=== PATIENT | female | born 1995 | race African-American/Black ===

== ENCOUNTER 2017-01-06 23:39 | Emergency (ER) | payer MEDICAID, OTHER ==
[~2017-01-06 23:39] MED LIST: MOBI15TA PO; TRAM50 PO
[2017-01-06 23:47] VITALS: BP 129/62; PULSE 84; RESP 16; TEMP 98.8; O2SAT 100
[2017-01-07 00:31] LABS: BLOOD, URINE NEG (NEG); GLUCOSE,URINE NEG (NEG); KETONE, URINE TRACE mg/dL (NEG); MUCUS URINE MANY /lpf (OCC); NITRITE,URINE NEG (NEG); RENAL EPITHELIAL CELLS <1 /hpf; SQUAMOUS EPITHELIAL CELL URINE 10 /hpf (0-5); URINE COLOR YELLOW (YELLW/STRAW)
[2017-01-07 00:32] LABS: COMMENT (UR) CULT NOT INDICATED; CULTURE IF INDICATED CULT NOT INDICATED
[2017-01-07] MEDS ORDERED: ONDANSETRON HCL 4 MG/2 ML VIAL IV ONE (01:30)
[2017-01-07] MEDS ORDERED: SODIUM CHLOR 0.9% 1000 ML INJ 1,000 ML IV ONE (01:30)
[2017-01-07 01:40] LABS: AUTOMATED NEUTROPHIL # 3.1 TH/MM3 (1.8-7.7); BASOPHIL # 0.1 TH/MM3 (0-0.2); BASOPHIL % 0.8 % (0.0-2.0); EOSINOPHIL # 0.1 TH/MM3 (0-0.4); EOSINOPHIL % 1.3 % (0.0-4.0); HEMATOCRIT 35.4 % (35.0-46.0); HEMO FLAGS DIFF FINAL; LYMPH % 38.3 % (9.0-44.0); LYMPHOCYTE # 2.4 TH/MM3 (1.0-4.8); MEAN CELL VOLUME 82.6 FL (80.0-100.0); MEAN CORPUSCULAR HEMOGLOBIN 27.5 PG (27.0-34.0); MEAN CORPUSCULAR HGB CONC 33.3 % (32.0-36.0); MONO % 10.8 % (0.0-8.0); NEUT % 48.8 % (16.0-70.0); PLATELET COUNT 396 TH/MM3 (150-450); RED BLOOD COUNT 4.28 MIL/MM3 (4.00-5.30); RED CELL DISTRIBUTION WIDTH 13.5 % (11.6-17.2); WHITE BLOOD COUNT 6.4 TH/MM3 (4.0-11.0)
[2017-01-07 01:58] LABS: ALT (GPT) 25 U/L (9-42); ANION GAP 9 MEQ/L (5-15); AST (GOT) 16 U/L (16-38); BICARBONATE 23.3 MEQ/L (21.0-32.0); BLOOD UREA NITROGEN 13 MG/DL (7-18); CHLORIDE 107 MEQ/L (98-107); GLOMERULAR FILTRATION RATE 133 ML/MIN (>89); POTASSIUM 3.7 MEQ/L (3.5-5.1); SODIUM (NA) 139 MEQ/L (136-145)
[2017-01-07 02:07] LABS: ALKALINE PHOSPHATASE 97 U/L (45-117); TOTAL BILIRUBIN ADULT 0.2 MG/DL (0.2-1.0)
[2017-01-07] MEDS ORDERED: IOHEXOL 350 MG/ML 10 ML VIAL (for RAD DIAG) IV ONE (02:40)
--- NOTE | 2017-01-07 02:53 | PD ---
HPI Chief Complaint: Abdominal Pain Time Seen by Provider: 00:44 Travel History International Travel<30 days: No Contact w/Intl Traveler<30days: No Traveled to known affect area: No History of Present Illness HPI The patient is a 21 year old female who presents to the [facility] emergency department with a history of reportedly having lower abdominal cramping like she is having her menstrual cycle for the last 2 weeks, however her cycle has not started. Her last menstrual cycle was reportedly November 29, 2016. She reports that she has been diagnosed with ovarian cysts as well as fibroids in the past. She reports that they run in her family. She reports that she has been on oral contraceptives previously, however she is not currently. She denies any possibility of being . She reports that earlier today she did have one episode of vomiting. She reports that she has had diarrhea 1 time per day for the last week. She reports that her stool is light brown to green in color. She denies having any blood or mucus in her stool The patient denies any recent fevers, cough, congestion, neck pain, chest pain, shortness of breath, urinary symptoms, vaginal discharge or neurologic symptoms. [facility] Past Medical History Narrative Medical The patient's past medical history is significant for fibroids, history of ovarian cysts. Medical History: Denies Significant Hx Tetanus Vaccination: Unknown ?: Unknown LMP: 12/30/16 Past Surgical History Narrative Surgical The patient's past surgical history is reportedly none. Surgical History: No Previous Surgery Social History Alcohol Use: No Tobacco Use: No Substance Use: No Allergies-Medications (Allergen,Severity, Reaction): Coded Allergies: No Known Allergies (Unverified , 01/07/17) Reported Meds & Prescriptions Reported Meds & Active Scripts Active No Active Prescriptions or Reported Medications Review of Systems General / Constitutional: No: Fever Eyes: No: Visual changes HENT: No: Headaches Cardiovascular: No: Chest Pain or Discomfort Respiratory: No: Shortness of Breath Gastrointestinal: Positive: Nausea, Vomiting, Diarrhea, Abdominal Pain, Changes in Bowel Habits, No: Hematemesis, Hematochezia, Constipation, Indigestion, Loss of Appetite Genitourinary: No: Dysuria Musculoskeletal: No: Pain Skin: No Rash Neurologic: No: Weakness Psychiatric: No: Depression Endocrine: No: Polydipsia Hematologic/Lymphatic: No: Easy Bruising Physical Exam Narrative General: The patient is a well-developed well-nourished female in no acute distress. Head and Neck exam: Head is normocephalic atraumatic. Eyes: EOMI, pupils are equal round and reactive to light. Nose: Midline septum with pink mucous membranes Mouth: Dentition unremarkable. Moist mucus membranes. Posterior oropharynx is not erythematous. No tonsillar hypertrophy. Uvula midline. Airway patent. Neck: No palpable lymphadenopathy. No nuchal rigidity. No thyromegaly. Cardiovascular: Regular rate and rhythm without murmurs, gallops, or rubs. Lungs: Clear to auscultation bilaterally. No wheezes, rhonchi, or rales. Abdomen: Soft, with reported tenderness on palpation in bilateral lower quadrants and suprapubic area, no other tenderness on palpation of the upper quadrant of the abdomen and midepigastric area. No guarding, rebound, or rigidity. Normal bowel sounds are audible. No tenderness on palpation of McBurney's point. Negative [place] sign. Extremities: No clubbing, cyanosis, or edema. No calf tenderness on palpation. Back: No costovertebral angle tenderness to palpation. Neurologic Exam: Grossly nonfocal. Skin Exam: No rash noted. Intact skin that is warm and dry. Data Data Last Documented VS Vital Signs Date Time Temp Pulse Resp B/P Pulse Ox O2 Delivery O2 Flow Rate FiO2 01/06/17 23:47 98.8 84 16 129/62 100 Orders Urinalysis - C+S If Indicated (01/07/17 00:03) Ed Urine Pregnancytest Poc (01/07/17 00:03) Complete Blood Count With Diff (01/07/17 01:21) Comprehensive Metabolic Panel (01/07/17 01:21) Lipase (01/07/17 01:21) Thyroid Stimulating Hormone (01/07/17 01:21) Iv Access Insert/Monitor (01/07/17 01:21) Ecg Monitoring (01/07/17 01:21) Oximetry (01/07/17 01:21) Sodium Chlor 0.9% 1000 Ml Inj (Ns 1000 M (01/07/17 01:30) Ondansetron Inj (Zofran Inj) (01/07/17 01:30) Ct Abd/Pel W Iv Contrast(Rout) (01/07/17 02:28) Iohexol 350 Inj (Omnipaque 350 Inj) (01/07/17 02:40) Ketorolac Inj (Toradol Inj) (01/07/17 03:45) Labs Laboratory Tests Test 01/07/17 01/07/17 00:03 01:30 Urine Color YELLOW Urine Turbidity HAZY Urine pH 6.0 Urine Specific [place] 1.044 Urine Protein 30 mg/dL Urine Glucose (UA) NEG mg/dL Urine Ketones TRACE mg/dL Urine Occult Blood NEG Urine Nitrite NEG Urine Bilirubin NEG Urine Urobilinogen LESS THAN 2.0 MG/DL Urine Leukocyte Esterase SMALL Urine RBC 2 /hpf Urine WBC 3 /hpf Urine Squamous Epithelial 10 /hpf Cells Urine Renal Epithelial Cells <1 /hpf Urine Mucus MANY /lpf Microscopic Urinalysis Comment CULT NOT INDICATED White Blood Count 6.4 TH/MM3 Red Blood Count 4.28 MIL/MM3 Hemoglobin 11.8 GM/DL Hematocrit 35.4 % Mean Corpuscular Volume 82.6 FL Mean Corpuscular Hemoglobin 27.5 PG Mean Corpuscular Hemoglobin 33.3 % Concent Red Cell Distribution Width 13.5 % Platelet Count 396 TH/MM3 Mean Platelet Volume 7.2 FL Neutrophils (%) (Auto) 48.8 % Lymphocytes (%) (Auto) 38.3 % Monocytes (%) (Auto) 10.8 % Eosinophils (%) (Auto) 1.3 % Basophils (%) (Auto) 0.8 % Neutrophils # (Auto) 3.1 TH/MM3 Lymphocytes # (Auto) 2.4 TH/MM3 Monocytes # (Auto) 0.7 TH/MM3 Eosinophils # (Auto) 0.1 TH/MM3 Basophils # (Auto) 0.1 TH/MM3 CBC Comment DIFF FINAL Differential Comment Sodium Level 139 MEQ/L Potassium Level 3.7 MEQ/L Chloride Level 107 MEQ/L Carbon Dioxide Level 23.3 MEQ/L Anion Gap 9 MEQ/L Blood Urea Nitrogen 13 MG/DL Creatinine 0.68 MG/DL Estimat Glomerular Filtration 133 ML/MIN Rate Random Glucose 76 MG/DL Calcium Level 8.8 MG/DL Total Bilirubin 0.2 MG/DL Aspartate Amino Transf 16 U/L (AST/SGOT) Alanine Aminotransferase 25 U/L (ALT/SGPT) Alkaline Phosphatase 97 U/L Total Protein 7.7 GM/DL Albumin 3.7 GM/DL Lipase 82 U/L Thyroid Stimulating Hormone 1.760 uIU/ML [address] [place] [address] Medical Decision Making Medical Screen Exam Complete: Yes Emergency Medical Condition: Yes Medical Record Reviewed: Yes Differential Diagnosis Cystitis, versus pyelonephritis, versus kidney stone, versus ovarian cyst, versus dysmenorrhea, versus ectopic Narrative Course During the course of the patients emergency department visit, the patients history, examination, and differential diagnosis were reviewed with the patient. The patient had IV access obtained and blood work sent for analysis. The patient was placed on a associate dean of students with oximetry and blood pressure monitoring. A CT scan of the abdomen and pelvis was ordered after a bedside test was negative. The patient was initially provided normal saline 1 L IV fluid bolus, Zofran 4 mg IV, Toradol 15 mg IV. The patients laboratory studies were reviewed and remarkable for a white count of 6.4, hemoglobin 11.8, platelets 396 with 10.8 monocytes. CMP is unremarkable , lipase 82, TSH 1.76, urinalysis shows trace ketones small leukocyte esterase, culture not indicated Radiology studies were reviewed and remarkable for a CT scan of the abdomen and pelvis that shows bilateral adnexal cysts right greater than the left, otherwise unremarkable. The patient's results were discussed with her. The patient was given an outpatient lab slip to obtain an ultrasound of the pelvis. The patient was instructed regarding the importance of following up with a purchasing associate. She is given the name of the purchasing associate on-call, Dr. Hanson for follow-up. The patient will be discharged home with a prescription for Naprosyn. The patient is resting comfortably and feels better, is alert and in no distress. The patients results and examination findings were discussed with the patient. The repeat examination is unremarkable and benign. The history, exam, diagnostic testing, and current condition do not suggest any significant pathology to warrant further testing, continued ED treatment, admission, or surgical evaluation at this point. The vital signs have been stable. The patient does not have uncontrollable pain, intractable vomiting, or other significant symptoms. The patient's condition is stable and appropriate for discharge. The patient will pursue further outpatient evaluation with a primary care physician or other designated or consulting physician as indicated in the discharge instructions. The patient expressed understanding and was agreeable with this plan. Diagnosis Primary Impression: Pelvic pain Additional Impression: Ovarian cyst Qualified Code: N83.201 - Cysts of both ovaries Referrals: Markie Hardy MD 3 days Patient Instructions: General Instructions, Ovarian Cyst (ED), Pelvic Pain (ED) Med/Other Pt SpecificInfo: Prescription(s) given Scripts Ondansetron Odt (Zofran Odt)4 Mg Tab4 Mg SL Q6HR PRN (Nausea/Vomiting) #7 TAB Ref 0 Prov:Roselia Wynn MD 01/07/[address] (Naproxen EC)500 Mg [id number] Mg PO BID PRN (PAIN GREATER THAN 5) # 10 TAB Ref 0 Prov:Roselia Wynn MD 01/07/17 Disposition: 01 DISCHARGE HOME Condition: Stable Roselia Wynn MD Jan 07, 2017 02:53
--- NOTE | 2017-01-07 02:53 | RADRPT ---
EXAM DATE/TIME: 01/07/2017 02:38 [place] COMPARISON: No previous studies available for comparison. INDICATIONS : Intermittent epigastric pain with nausea and vomiting. IV CONTRAST: 97 cc Omnipaque 350 (iohexol) IV ORAL CONTRAST: No oral contrast ingested. RADIATION DOSE: 14.30 CTDIvol (mGy) MEDICAL HISTORY : None SURGICAL HISTORY : None. ENCOUNTER: Initial ACUITY: 2 weeks PAIN SCALE: 7/10 LOCATION: Bilateral upper quadrant TECHNIQUE: Volumetric scanning of the abdomen and pelvis was performed. Using automated exposure control and ad justment of the mA and/or kV according to patient size, radiation dose was kept as low as reasonably achievable to obtain optimal diagnostic quality images. FINDINGS: LOWER LUNGS: The visualized lower lungs are clear. LIVER: Homogeneous density without lesion. There is no dilation of the biliary tree. No calcified gallston es. SPLEEN: Normal size without lesion. PANCREAS: Within normal limits. KIDNEYS: Normal in size and shape. There is no mass, stone or hydronephrosis. ADRENAL GLANDS: Within normal limits. VASCULAR: There is no aortic aneurysm. BOWEL/MESENTERY: The stomach, small bowel, and colon demonstrate no acute abnormality. There is no free intraperitone al air or fluid. No inflammatory changes. ABDOMINAL WALL: Within normal limits. RETROPERITONEUM: There is no lymphadenopathy. BLADDER: No wall thickening or mass. REPRODUCTIVE: There is a 4.4 cm right adnexal cyst. There is a 2.3 cm left adnexal cyst. No free fluid in the cul-d e-sac. INGUINAL: There is no lymphadenopathy or hernia. MUSCULOSKELETAL: Within normal limits for patient age. CONCLUSION: 1. Bilateral adnexal cysts, right greater than left. 2. Otherwise, unremarkable examination. Stef Vargas MD on January 07, 2017 at 2:46 Board Certified Radiologist. This report was verified electronically.
[2017-01-07] MEDS ORDERED: NAPR1TAB34 PO (03:35)
[2017-01-07] MEDS ORDERED: ZOFR4TAB3 SL (03:35)
[2017-01-07] MEDS ORDERED: KETOROLAC TROMETHAMINE 30 MG/ML (IVP) VIAL IV PUSH ONE (03:45)
== END 2017-01-07 03:53 | disposition home or self-care (01) ==
LOC: NEPC 23:39
DX: R10.2 Pelvic and perineal pain (principal); N83.202 Unspecified ovarian cyst, left side; N83.201 Unspecified ovarian cyst, right side
CPT/HCPCS: 74177; 80053; 81001; 83690; 84443; 84703; 85025; 96361; 96374; 96375; 99284; J1885; J2405; J7030; Q9967

== ENCOUNTER 2017-05-14 20:22 | Emergency (ER) | payer SELFPAY ==
[~2017-05-14] VITALS: Ht 165.1 cm; Wt 82.5 kg
[~2017-05-14 20:22] MED LIST changes: -MOBI15TA PO; +NAPR1TAB34 PO; -TRAM50 PO; +ZOFR4TAB3 SL
[2017-05-14 20:24] VITALS: BP 144/72; PULSE 98; RESP 15; TEMP 99.5; O2SAT 100
--- NOTE | 2017-05-14 20:55 | PD ---
Physical Exam Time Seen by Provider: 20:52 Narrative 21yo F c/o dysuria, hematuria, and urinary frequency x 3 days. Increased vaginal secretions, jeremiah denies abnormal vag dc or odor. +suprapubic pain. Agus fever, vomiting. LMP May 09. Patient seen in triage. VS reviewed. Patient awaiting bed placement. Data Data Last Documented VS Vital Signs Date Time Temp Pulse Resp B/P (MAP) Pulse Ox O2 Delivery O2 Flow Rate FiO2 05/14/17 20:24 99.5 98 15 144/72 (96) 100 Room Air MDM Supervised Visit with SUKHWINDER: Rima Ojeda May 14, 2017 20:55
--- NOTE | 2017-05-14 21:35 | PD ---
HPI Chief Complaint: Conversion Developer Problem/Complaint Time Seen by Provider: 21:34 Travel History International Travel<30 days: No Contact w/Intl Traveler<30days: No Traveled to known affect area: No History of Present Illness HPI Patient is a 21-year-old female presents the emergency department for evaluation of dysuria. Patient states she has a history of recurrent urinary tract infections. When asked patient states she does wipe her bottom from back to front. Patient states she is having a little bit of suprapubic discomfort but no pain. Denies any nausea vomiting diarrhea constipation vaginal bleeding or vaginal discharge. Patient states symptoms been going on for the past few days gradually worsening.. PFSH Past Medical History Medical History: Denies Significant Hx Diminished Hearing: No Tetanus Vaccination: Unknown Influenza Vaccination: Yes ?: Not LMP: 05/09/17 Past Surgical History Surgical History: No Previous Surgery Social History Alcohol Use: No Tobacco Use: No Substance Use: No Allergies-Medications (Allergen,Severity, Reaction): Coded Allergies: No Known Allergies (Unverified , 05/14/17) Reported Meds & Prescriptions Reported Meds & Active Scripts Active Keflex (Cephalexin) 500 Mg Cap 500 Mg PO Q6H 3 Days Review of Systems Except as stated in HPI: all other systems reviewed are Neg Physical Exam Narrative GENERAL: Well-nourished, well-developed patient. SKIN: Focused skin assessment warm/dry. HEAD: Normocephalic. Atraumatic. EYES: No scleral icterus. No injection or drainage. NECK: Supple, trachea midline. No JVD or lymphadenopathy. CARDIOVASCULAR: Regular rate and rhythm without murmurs, gallops, or rubs. RESPIRATORY: Breath sounds equal bilaterally. No accessory muscle use. GASTROINTESTINAL: Abdomen soft, non-tender, nondistended. No rebound no percussive tenderness. Abdomen is soft. Benign. GENITOURINARY: Offered to and refused by patient. MUSCULOSKELETAL: No cyanosis, or edema. BACK: Nontender without obvious deformity. No CVA tenderness. Data Data Last Documented VS Vital Signs Date Time Temp Pulse Resp B/P (MAP) Pulse Ox O2 Delivery O2 Flow Rate FiO2 05/15/17 00:35 140/74 (96) 90 05/14/17 20:24 99.5 98 15 Room Air Orders Orders Urinalysis - C+S If Indicated (05/14/17 20:55) Ed Urine Pregnancytest Poc (05/14/17 20:55) Urinalysis - C+S If Indicated (05/14/17 23:06) Labs Laboratory Tests Test 05/14/17 23:15 Urine Color YELLOW Urine Turbidity HAZY Urine pH 7.0 Urine Specific [place] 1.024 Urine Protein NEG mg/dL Urine Glucose (UA) NEG mg/dL Urine Ketones NEG mg/dL Urine Occult Blood NEG Urine Nitrite NEG Urine Bilirubin NEG Urine Urobilinogen LESS THAN 2.0 MG/DL Urine Leukocyte Esterase SMALL Urine RBC 4 /hpf Urine WBC 7 /hpf Urine Squamous Epithelial Cells 7 /hpf Microscopic Urinalysis Comment CULT NOT INDICATED MDM Medical Decision Making Medical Screen Exam Complete: Yes Emergency Medical Condition: Yes Differential Diagnosis UTI, cystitis, BV, CVA, STD, sepsis unlikely, acute abdomen excluded clinically. Narrative Course Patient roomed emerged permit, appears well in no obvious distress. She gave urine sample test negative, UA is actually unremarkable. Patient is insisting that her symptoms are coming from her urine. Recommended the patient that she have a pelvic exam to look for other causes her discomfort and she declines at this time would like to follow-up with her sales and marketing intern. Discussed we can start her on empiric Keflex and she is agreeable to this. She stable for discharge. Diagnosis Primary Impression: Dysuria Med/Other Pt SpecificInfo: Prescription(s) given Scripts Cephalexin (Keflex) 500 Mg Cap 500 MG PO Q6H for Infection for 3 Days, CAP 0 Refills Prov: Ryan Cabrera MD 05/15/17 Disposition: 01 DISCHARGE HOME Condition: Stable Ryan Cabrera MD May 14, 2017 21:35
[2017-05-14 23:54] LABS: BLOOD, URINE NEG (NEG); COMMENT (UR) CULT NOT INDICATED; CULTURE IF INDICATED CULT NOT INDICATED; GLUCOSE,URINE NEG (NEG); KETONE, URINE NEG (NEG); NITRITE,URINE NEG (NEG); SQUAMOUS EPITHELIAL CELL URINE 7 /hpf (0-5); URINE COLOR YELLOW (YELLW/STRAW)
[2017-05-15] MEDS ORDERED: CEPH-460 PO (00:04)
[2017-05-15 00:35] VITALS: BP 140/74
== END 2017-05-15 00:40 | disposition home or self-care (01) ==
LOC: NEPD 20:22
DX: R30.0 Dysuria (principal); R31.9 Hematuria, unspecified; R35.0 Frequency of micturition; Z87.440 Personal history of urinary (tract) infections
CPT/HCPCS: 81001; 84703; 99283

== ENCOUNTER 2017-10-24 23:00 | Emergency (ER) | payer SELFPAY ==
[~2017-10-24] VITALS: Ht 165.1 cm; Wt 82.0 kg
[~2017-10-24 23:00] MED LIST changes: +CEPH-460 PO; -NAPR1TAB34 PO; -ZOFR4TAB3 SL
[2017-10-24 23:02] VITALS: BP 118/61; PULSE 95; RESP 16; TEMP 98.7; O2SAT 100
[2017-10-25] MEDS ORDERED: SODIUM CHLORIDE 0.9% FLUSH 10 ML FLUSH IV FLUSH PRN (01:45)
[2017-10-25 02:26] VITALS: O2SAT 100
[2017-10-25 02:40] LABS: AUTOMATED NEUTROPHIL # 4.7 TH/MM3 (1.8-7.7); BASOPHIL # 0.1 TH/MM3 (0-0.2); BASOPHIL % 0.6 % (0.0-2.0); EOSINOPHIL # 0.1 TH/MM3 (0-0.4); HEMATOCRIT 35.3 % (35.0-46.0); HEMOGLOBIN 11.7 GM/DL (11.6-15.3); LYMPH % 35.7 % (9.0-44.0); LYMPHOCYTE # 3.1 TH/MM3 (1.0-4.8); MEAN CELL VOLUME 83.9 FL (80.0-100.0); MEAN CORPUSCULAR HEMOGLOBIN 27.9 PG (27.0-34.0); MEAN CORPUSCULAR HGB CONC 33.2 % (32.0-36.0); MEAN PLATELET VOLUME 6.7 FL (7.0-11.0); MONO % 7.8 % (0.0-8.0); MONOCYTE # 0.7 TH/MM3 (0-0.9); NEUT % 54.9 % (16.0-70.0); PLATELET COUNT 429 TH/MM3 (150-450); RED CELL DISTRIBUTION WIDTH 13.8 % (11.6-17.2); WHITE BLOOD COUNT 8.6 TH/MM3 (4.0-11.0)
[2017-10-25 02:47] LABS: BILIRUBIN, URINE NEG (NEG); BLOOD, URINE MOD (NEG); GLUCOSE,URINE NEG (NEG); KETONE, URINE NEG (NEG); MUCUS URINE FEW /lpf (OCC); NITRITE,URINE NEG (NEG); PH, URINE 6.5 (5.0-8.5); RENAL EPITHELIAL CELLS <1 /hpf; SQUAMOUS EPITHELIAL CELL URINE 1 /hpf (0-5); URINE COLOR YELLOW (YELLW/STRAW); URINE LEUKOCYTE ESTERASE MOD (NEG)
[2017-10-25 02:59] LABS: ALBUMIN 3.4 GM/DL (3.4-5.0); ALT (GPT) 25 U/L (10-53); AST (GOT) 21 U/L (15-37); BICARBONATE 27.9 MEQ/L (21.0-32.0); BLOOD UREA NITROGEN 11 MG/DL (7-18); CALCIUM 8.5 MG/DL (8.5-10.1); CHLORIDE 106 MEQ/L (98-107); CREATININE 0.65 MG/DL (0.50-1.00); GLOMERULAR FILTRATION RATE 139 ML/MIN (>89); GLUCOSE,RANDOM 84 MG/DL (74-106); SODIUM (NA) 139 MEQ/L (136-145)
[2017-10-25 03:03] LABS: ALKALINE PHOSPHATASE 102 U/L (45-117); TOTAL BILIRUBIN ADULT 0.3 MG/DL (0.2-1.0); TOTAL PROTEIN 7.6 GM/DL (6.4-8.2)
[2017-10-25] MEDS ORDERED: KETOROLAC TROMETHAMINE 30 MG/ML (IVP) VIAL IV PUSH ONE (03:15)
[2017-10-25] MEDS ORDERED: IBUP1TAB5 PO (04:02)
--- NOTE | 2017-10-25 04:02 | PD ---
HPI . Abdominal pain Chief Complaint: Abdominal Pain Time Seen by Provider: 01:16 Travel History International Travel<30 days: No Contact w/Intl Traveler<30days: No Traveled to known affect area: No History of Present Illness HPI 22-year-old female complains of having lower pelvic abdominal pain intermittently for the past several months. Patient notes having frequent menses, approximately every 2 weeks, more so late. Patient has a history of ovarian cysts and mother has history of ovarian cysts as well. Patient recently moved here, does not have an established [facility], has not had the above complaints evaluated yet. Denies any fever chills sweats, nausea vomiting diarrhea, no vaginal discharge. Patient denies PFSH Past Medical History Narrative Medical Past medical history reviewed Medical History: Denies Significant Hx Diminished Hearing: No Tetanus Vaccination: < 5 Years Influenza Vaccination: Yes ?: Not LMP: 10/25/17 Past Surgical History Surgical History: No Previous Surgery Social History Alcohol Use: No Tobacco Use: No Substance Use: No Allergies-Medications (Allergen,Severity, Reaction): Coded Allergies: No Known Allergies (Verified Adverse Reaction, Unknown, 10/25/17) Reported Meds & Prescriptions Reported Meds & Active Scripts Active Keflex (Cephalexin) 500 Mg Cap 500 Mg PO Q6H 3 Days Narrative Medication Allergies and medications reviewed Review of Systems Except as stated in HPI: all other systems reviewed are Neg General / Constitutional: No: Fever Eyes: No: Visual changes HENT: No: Headaches Cardiovascular: No: Chest Pain or Discomfort Respiratory: No: Shortness of Breath Gastrointestinal: No: Abdominal Pain Genitourinary: Positive: Flank Pain, Dysmenorrhea, Vaginal Bleeding, No: Urgency, Frequency, Dysuria, Hematuria, Discharge, Menorrhagia, Metorrhagia Musculoskeletal: No: Pain Skin: No Rash Neurologic: No: Weakness Psychiatric: No: Depression Endocrine: No: Polydipsia Hematologic/Lymphatic: No: Easy Bruising Physical Exam Narrative GENERAL: Awake alert oriented 3 no acute distress SKIN: Warm and dry. HEAD: Atraumatic. Normocephalic. EYES: Pupils equal and round. No scleral icterus. No injection or drainage. ENT: No nasal bleeding or discharge. Mucous membranes pink and moist. NECK: Trachea midline. No JVD. Supple full range of motion CARDIOVASCULAR: Regular rate and rhythm. No murmurs rubs or gallops RESPIRATORY: No accessory muscle use. Clear to auscultation. Breath sounds equal bilaterally. GASTROINTESTINAL: Abdomen soft, mildly-tender lower abdomen, no rebound or guarding, nondistended. Hepatic and splenic margins not palpable. Pelvic exam offered, deferred by patient MUSCULOSKELETAL: Extremities without clubbing, cyanosis, or edema. No obvious deformities. NEUROLOGICAL: Awake and alert. No obvious cranial nerve deficits. Motor grossly within normal limits. Five out of 5 muscle strength in the arms and legs. Normal speech. PSYCHIATRIC: Appropriate mood and affect; insight and judgment normal. Data Data Last Documented VS Vital Signs Date Time Temp Pulse Resp B/P (MAP) Pulse Ox O2 Delivery O2 Flow Rate FiO2 10/25/17 02:26 100 Room Air 10/24/17 23:02 98.7 95 16 Orders Orders Beta Hcg (Quant/Titer) (10/25/17 01:45) Complete Blood Count With Diff (10/25/17 01:45) Comprehensive Metabolic Panel (10/25/17 01:45) Urinalysis - C+S If Indicated (10/25/17 01:45) Iv Access Insert/Monitor (10/25/17 01:45) Ecg Monitoring (10/25/17 01:45) Oximetry (10/25/17 01:45) Sodium Chloride 0.9% Flush (Ns Flush) (10/25/17 01:45) Urine Culture (10/25/17 02:15) Ketorolac Inj (Toradol Inj) (10/25/17 03:15) Labs Laboratory Tests Test 10/25/17 02:15 White Blood Count 8.6 TH/MM3 Red Blood Count 4.20 MIL/MM3 Hemoglobin 11.7 GM/DL Hematocrit 35.3 % Mean Corpuscular Volume 83.9 FL Mean Corpuscular Hemoglobin 27.9 PG Mean Corpuscular Hemoglobin Concent 33.2 % Red Cell Distribution Width 13.8 % Platelet Count 429 TH/MM3 Mean Platelet Volume 6.7 FL Neutrophils (%) (Auto) 54.9 % Lymphocytes (%) (Auto) 35.7 % Monocytes (%) (Auto) 7.8 % Eosinophils (%) (Auto) 1.0 % Basophils (%) (Auto) 0.6 % Neutrophils # (Auto) 4.7 TH/MM3 Lymphocytes # (Auto) 3.1 TH/MM3 Monocytes # (Auto) 0.7 TH/MM3 Eosinophils # (Auto) 0.1 TH/MM3 Basophils # (Auto) 0.1 TH/MM3 CBC Comment DIFF FINAL Differential Comment Urine Color YELLOW Urine Turbidity CLEAR Urine pH 6.5 Urine Specific [place] 1.020 Urine Protein NEG mg/dL Urine Glucose (UA) NEG mg/dL Urine Ketones NEG mg/dL Urine Occult Blood MOD Urine Nitrite NEG Urine Bilirubin NEG Urine Urobilinogen 2.0 MG/DL Urine Leukocyte Esterase MOD Urine RBC 5 /hpf Urine WBC 21 /hpf Urine Squamous Epithelial Cells 1 /hpf Urine Renal Epithelial Cells <1 /hpf Urine Mucus FEW /lpf Microscopic Urinalysis Comment CULTURE INDICATED Blood Urea Nitrogen 11 MG/DL Creatinine 0.65 MG/DL Random Glucose 84 MG/DL Total Protein 7.6 GM/DL Albumin 3.4 GM/DL Calcium Level 8.5 MG/DL Alkaline Phosphatase 102 U/L Aspartate Amino Transf (AST/SGOT) 21 U/L Alanine Aminotransferase (ALT/SGPT) 25 U/L Total Bilirubin 0.3 MG/DL Sodium Level 139 MEQ/L Potassium Level 3.6 MEQ/L Chloride Level 106 MEQ/L Carbon Dioxide Level 27.9 MEQ/L Anion Gap 5 MEQ/L Estimat Glomerular Filtration Rate 139 ML/MIN Human Chorionic Gonadotropin, Quant LESS THAN 1 MIU/ML MDM Medical Decision Making Medical Screen Exam Complete: Yes Emergency Medical Condition: Yes Medical Record Reviewed: Yes Differential Diagnosis Ovarian cysts, dysmenorrhea, endometriosis, polycystic ovarian disease Narrative Course Patient's laboratory examinations reviewed, no significant normalities. Patient does have moderate leukocyte esterase but negative nitrites on urinalysis. Pelvic exam offered to patient, deferred. Care plan developed: Patient to be referred to outpatient [facility]. Recommend outpatient pelvic ultrasound and potentially MRI of the pelvis for evaluation of possible polycystic ovarian disease, endometriosis. Diagnosis Primary Impression: Pelvic pain Patient Instructions: General Instructions, Pelvic Pain in Women (ED) Additional Instructions: Motrin 4 mg every 6-8 hours for pain as needed. Follow-up with [facility] as outpatient. Recommend outpatient pelvic ultrasound, and potentially MRI of pelvis for evaluation of ovarian cysts and possible endometriosis. Return for worsening Scripts Ibuprofen (Ibuprofen) 400 Mg Tab 400 MG PO Q8H Y for PAIN SCALE 1 TO 10, #20 TAB 0 Refills Prov: Anthony Carlson MD 2/9/18 Disposition: 01 DISCHARGE HOME Condition: Stable Anthony Carlson MD Oct 25, 2017 04:02
== END 2017-10-25 04:31 | disposition home or self-care (01) ==
LOC: NEPE 23:00
DX: R10.2 Pelvic and perineal pain (principal)
CPT/HCPCS: 80053; 81001; 84702; 85025; 87086; 96374; 99284; J1885